=== PATIENT | female | born 1985 | race Caucasian/White ===

== ENCOUNTER → 2019-04-09 15:52 | Outpatient (BNVA) | payer MEDICAID, SELFPAY | PROVIDERS: Family Provider Family Medicine; Visit Provider Nurse Practitioner Family | DX: R05 Cough (principal); J06.9 Acute upper respiratory infection, unspecified | CPT/HCPCS: 87804 ==

== ENCOUNTER → 2019-11-05 14:00 | Outpatient (BNVA) | payer MEDICAID, SELFPAY | PROVIDERS: Family Provider Family Medicine; Visit Provider Obstetrics & Gynecology | DX: Z12.4 Encounter for screening for malignant neoplasm of cervix (principal) | CPT/HCPCS: 88175 ==

== ENCOUNTER → 2020-10-26 15:27 | Outpatient (BNVA) | payer MEDICAID, SELFPAY | PROVIDERS: Family Provider Family Medicine; Visit Provider Nurse Practitioner Family | DX: R05 Cough (principal); Z20.822 Contact with and (suspected) exposure to COVID-19 | CPT/HCPCS: 87635 ==

== ENCOUNTER 2020-11-18 16:04 | Emergency (ER) | payer MEDICAID, SELFPAY ==
[2020-11-18 16:43] VITALS: BP 127/58; PULSE 77; RESP 20; TEMP 36.8; O2SAT 99; BMI 39.9
--- NOTE | 2020-11-18 17:05 | ECG_ITS ---
[facility] Test Date: 2020-11-18 Pat Name: Mary Coburn Department: Room: Gender: Female Asset Availability Leader: : 1985 Requested By: Rip Pruitt Order Number: [id number] Natalia MD: Mohinder Moses M.D. Measurements Intervals [place] Rate: 66 P: 39 ND: 155 QRS: 12 QRSD: 81 T: 43 QT: 370 QTc: 388 Interpretive Statements SINUS RHYTHM NONSPECIFIC T-WAVE ABNORMALITY No previous ECG available for comparison Electronically Signed On 11-19-2020 21:14:38 CDT by Mohinder Moses M.D. [id number]
--- NOTE | 2020-11-18 17:21 | XRR_ITS ---
PROCEDURE INFORMATION: Exam: XR Chest Exam date and time: 11/18/2020 5:21 PM Age: 35 years old Clinical indication: Dyspnea; Patient HX: Covid + day 9 TECHNIQUE: Imaging protocol: XR of the chest. Views: 1 view. COMPARISON: CR Chest 1 [place] [id number] 03/05/2015 2:28 PM FINDINGS: Lungs: Ill-defined opacification in the left lower lobe. Findings are commonly seen in COVID-19 pneumonia. Per report, the patient is COVID-19 positive. Pleural spaces: No pleural effusion. No pneumothorax. Heart/Mediastinum: Stable mild enlargement of the cardiac silhouette. Mediastinal contours are unremarkable. Bones/joints: Unremarkable for age. XR/XR chest 1V portable [id number] IMPRESSION: 1. Ill-defined opacification in the left lower lobe. Findings are commonly seen in COVID-19 pneumonia. Per report, the patient is COVID-19 positive. Recommend followup chest imaging to insure resolution of these findings. 2. Incidental/nonacute findings are listed in the report.
--- NOTE | 2020-11-18 17:36 | CTR_ITS ---
PROCEDURE INFORMATION: Exam: CTA Chest With Contrast Exam date and time: 11/18/2020 5:36 PM Age: 35 years old Clinical indication: Shortness of breath; Patient HX: Covid + on day 9 of treatment worsening SOB and elev d-dimer; Additional info: Rule out pe TECHNIQUE: Imaging protocol: Computed tomographic angiography of the chest with contrast. 3D rendering (Not supervised by radiologist): MIP and/or 3D reconstructed images were created by the technologist. Radiation optimization: All CT scans at this facility use at least one of these dose optimization techniques: automated exposure control; mA and/or kV adjustment per patient size (includes targeted exams where dose is matched to clinical indication); or iterative reconstruction. Contrast material: OMNI 350; Contrast volume: 72 ml; Contrast route: INTRAVENOUS (IV); COMPARISON: CR (CHEST, ) 11/18/2020 5:34 PM RADIATION DOSE METRICS: Total DLP (mGy-cm): 558.86 FINDINGS: Pulmonary arteries: No filling defects in the pulmonary arteries to suggest pulmonary embolism. Aorta: No aortic aneurysm. No aortic dissection. Lungs: Tracheobronchial structures are patent. Multiple areas of ground-glass opacification in the periphery of both lungs. Findings are consistent with COVID-19 pneumonia. No pulmonary parenchymal nodules or masses. Pleural spaces: No pneumothorax. No pleural effusion. Heart: No cardiomegaly. No pericardial effusion. Mediastinal space: The esophagus is unremarkable. Lymph nodes: No lymphadenopathy. Liver: The visualized liver is unremarkable. Gallbladder and bile ducts: Patient has had a previous cholecystectomy. No dilatation of the visualized bile ducts. Pancreas: The visualized pancreas is unremarkable. No pancreatic ductal dilatation. Spleen: The visualized spleen is unremarkable. Adrenal glands: The right and left adrenal glands are unremarkable. Kidneys and ureters: The visualized right and left kidneys are unremarkable. Bones/joints: No acute fracture. No dislocation. Soft tissues: The extrathoracic soft tissues are unremarkable. CT/CT angio chest PE protcl [id number] IMPRESSION: 1. Multiple areas of ground-glass opacification in the periphery of both lungs. Findings are consistent with COVID-19 pneumonia. Per report, the patient is COVID-19 positive. Recommend followup chest imaging to insure resolution of these findings. 2. No evidence for pulmonary embolism. 3. Incidental/nonacute findings are listed in the report. Radiation Dose CTDIVOL = (mGy): DLP = 558.86 (mGy-cm)
[2020-11-18] MEDS: iohexol 350 mg/mL 100 mL Btl IV (18:02)
--- NOTE | 2020-11-18 18:17 | W.ED.GENADLT ---
HPI - General Adult General: Chief complaint: Shortness of Breath/Dyspnea Stated complaint: Covid +, Day 9, Sent by Time Seen by Provider: 11/18/20 17:04 History of Present Illness: HPI narrative: Patient is a 35-year-old female who was diagnosed with Covid 9 days ago presenting to the emergency room with complaints of sharp left-sided chest pain and hemoptysis. Patient's primary care provider was concerned that patient may have blood clot in the setting of Covid and has had an elevated D-dimer. Patient was told to go to the emergency room for evaluation for PE. Patient tells reports pleuritic chest pain in the left side. Denies any exertional chest pain, fever chills, or decreased p.o. intake. Patient has no or abdominal complaints or other complaints at this time. Onset: 4 days ago Duration:4 days Location:home Severity:moderate Review of Systems Narrative: Constitutional: No fever, no chills. HEENT: No vision changes CV: +pleuritic chest pain, no palpitations PULM: +cough, no dyspnea. +hemopytosis GI: No abdominal pain, no N/V/D. : No dysuria MSKEL: No muscle pain SKIN: No new rashes, no lesions. NEURO: No headache, no focal weakness. HEME: No visible bruises PSYCH: Normal mood PFSH ED PFSH: Medical History History of PCOS Obesity Surgical History Hx laparoscopic cholecystectomy (~11/2013) Preformed in [place], [place] Family History Grandfather Heart disease Paternal Hyperlipidemia Paternal Stroke Paternal Mother Uterine cancer Grandmother Hypertension Maternal Stroke Maternal Family/Other Thyroid disease Paternal Aunt Social History Smoking and tobacco status: never smoked Alcohol intake: current Alcohol intake frequency: holidays/special occasions only Female Reproductive History: Date of last menstrual period: 05/19/20 Physical Exam Narrative: EXAM NARRATIVE: Head: Atraumatic Eyes: PERRL, conjunctiva without injection ENT: Mucous membrane moist NECK: Supple, ROM intact LUNGS: Coarse breath sounds b/l CV: RRR ABDOMEN: Soft, nontender in all quadrants EXTREMITY: Normal ROM SKIN: No rash or erythema NEURO: Awake and alert, no focal motor deficits PSYCH: Normal mood and affect Course Vital Signs: Vital signs: Vital Signs Temperature 98.4 F 11/18/20 18:55 Pulse Rate 67 11/18/20 18:55 Respiratory Rate 20 H 11/18/20 18:55 Blood Pressure 121/87 11/18/20 18:55 Pulse Oximetry 98 11/18/20 18:55 MDM - General Adult MDM Narrative: Medical decision making narrative: 35-year-old female who presents the emergency room for concerns of blood clot given elevated D-dimer. On arrival, patient is hemodynamically stable without any signs of hypoxemia in the emergency room. Patient is noted to have coarse breath sounds bilaterally. EKG is unremarkable, basic blood work within normal limit. Chest x-ray and CTA is consistent with Covid pneumonia. There is no findings of blood clots today. Have discussed these results with patient. Patient agrees with follow-up with outpatient primary care provider. This time, given no desaturation in the emergency room, and no other comorbidities, patient does not qualify for BAM or Decadron. I have discussed these results with patient and offered patient a portable pulse ox for and instructed patient on how to use. Patient is to return to the emergency room should she have any symptoms of dyspnea or if her pulse ox is less than 90%. Patient agrees to followup with PCP in next 48-72 hrs for reassessment. Disposition: Discharge. Patient counseled regarding diagnostic impression, treatment plan. Patient given ED strict return precautions to return for continuation, worsening, or development of new symptoms. Instructed to f/u w/ PCP regarding symptoms today. Patient verbalized understanding. Lab Data: Labs: Lab Results 11/18/20 11/18/20 18:19 18:19 WBC 5.0 10^3/uL 10^3/ uL (4.0-10.0) RBC 4.08 10^6/uL L 10 ^6/uL (4.1-5.3) Hgb 12.1 g/dL g/dL (11.5-15.3) Hct 38.3 % % (37.0-47.0) MCV 93.9 fl fl (81-99) MCH 29.7 pg pg (28.0-34.0) MCHC 31.6 g/dL g/dL (30.0-36.0) RDW 12.5 % % (12.1-15.1) Plt Count 254 10^3/cmm 10^3 /cmm (130-400) MPV 9.4 fL fL (7.4-10.4) Neut % (Auto) 48.7 % % Lymph % (Auto) 43.1 % % [place] % (Auto) 7.6 % % Eos % (Auto) 0.2 % % Baso % (Auto) 0.2 % % Neut # (Auto) 2.42 10^3/uL 10^3 /uL (1.8-7.7) Lymph # (Auto) 2.1 10^3/uL 10^3/ uL (0.8-4.8) [place] # (Auto) 0.4 10^3/uL 10^3/ uL (0.2-0.9) Eos # (Auto) 0.0 10^3/uL 10^3/ uL (0.0-0.8) Baso # (Auto) 0.0 10^3/uL 10^3/ uL (0.0-0.1) Nucleated RBC % (a uto) 0 % % Nucleated RBCs # 0.0 /100WBC /100W BC Sodium 137 mmol/L mmol/L (136-145) Potassium 4.1 mmol/L mmol/L (3.5-5.1) Chloride 99 mmol/L mmol/L (98-107) Carbon Dioxide 29 mmol/L mmol/L (22-29) Anion Gap 13.1 (5-19) BUN 6 mg/dL mg/dL (6-20) Creatinine 0.5 mg/dL mg/dL (0.5-0.9) GFR Calculation 141.2 mL/min H mL /min (90-130) Glucose 82 mg/dL mg/dL (65-115) Calculated Osmolal ity 281 mOsm/kg L mOs m/kg (285-295) Calcium 8.8 mg/dL mg/dL (8.5-10.5) Imaging Data^: Other Imaging: Radiologist's impression: [employer] [id number] ReportSigned Patient: Sandra Coburn #: [id number]: 1985Acct#:[id number]/Sex: 35 / FADM Date: 11/18/20Loc: ERRoom/Bed:Attending Dr: Ordering Provider/Ordering MD: Rip Pruitt MD Date of Service: 11/18/20 Procedure(s): XR chest 1V portable [id number] Accession Number(s): [id number] Report Number: [id number] PROCEDURE INFORMATION: Exam: XR Chest Exam date and time: 11/18/2020 5:21 PM Age: 35 years old Clinical indication: Dyspnea; Patient HX: Covid + day 9 TECHNIQUE: Imaging protocol: XR of the chest. Views: 1 view. COMPARISON: CR Chest 1 [place] [id number] 03/05/2015 2:28 PM FINDINGS: Lungs: Ill-defined opacification in the left lower lobe. Findings are commonly seen in COVID-19 pneumonia. Per report, the patient is COVID-19 positive. Pleural spaces: No pleural effusion. No pneumothorax. Heart/Mediastinum: Stable mild enlargement of the cardiac silhouette. Mediastinal contours are unremarkable. Bones/joints: Unremarkable for age. XR/XR chest 1V portable [id number] IMPRESSION: 1. Ill-defined opacification in the left lower lobe. Findings are commonly seen in COVID-19 pneumonia. Per report, the patient is COVID-19 positive. Recommend followup chest imaging to insure resolution of these findings. 2. Incidental/nonacute findings are listed in the report. Dictated By:Amy Roberts MDSigned By:Amy Roberts MDSigned Date/Time:11/18/[address] [id number] Scan ReportSigned Patient: Sandra Coburn #: [id number]: 1985Acct#:[id number]/Sex: 35 / FADM Date: 11/18/20Loc: ERRoom/Bed:Attending Dr: Ordering Provider/Ordering MD: Rip Pruitt MD Date of Service: 11/18/20 Procedure(s): CT angio chest PE protcl [id number] Accession Number(s): [id number] Report Number: [id number] PROCEDURE INFORMATION: Exam: CTA Chest With Contrast Exam date and time: 11/18/2020 5:36 PM Age: 35 years old Clinical indication: Shortness of breath; Patient HX: Covid + on day 9 of treatment worsening SOB and elev d-dimer; Additional info: Rule out pe TECHNIQUE: Imaging protocol: Computed tomographic angiography of the chest with contrast. 3D rendering (Not supervised by radiologist): MIP and/or 3D reconstructed images were created by the technologist. Radiation optimization: All CT scans at this facility use at least one of these dose optimization techniques: automated exposure control; mA and/or kV adjustment per patient size (includes targeted exams where dose is matched to clinical indication); or iterative reconstruction. Contrast material: OMNI 350; Contrast volume: 72 ml; Contrast route: INTRAVENOUS (IV); COMPARISON: CR (CHEST, ) 11/18/2020 5:34 PM RADIATION DOSE METRICS: Total DLP (mGy-cm): 558.86 FINDINGS: Pulmonary arteries: No filling defects in the pulmonary arteries to suggest pulmonary embolism. Aorta: No aortic aneurysm. No aortic dissection. Lungs: Tracheobronchial structures are patent. Multiple areas of ground-glass opacification in the periphery of both lungs. Findings are consistent with COVID-19 pneumonia. No pulmonary parenchymal nodules or masses. Pleural spaces: No pneumothorax. No pleural effusion. Heart: No cardiomegaly. No pericardial effusion. Mediastinal space: The esophagus is unremarkable. Lymph nodes: No lymphadenopathy. Liver: The visualized liver is unremarkable. Gallbladder and bile ducts: Patient has had a previous cholecystectomy. No dilatation of the visualized bile ducts. Pancreas: The visualized pancreas is unremarkable. No pancreatic ductal dilatation. Spleen: The visualized spleen is unremarkable. Adrenal glands: The right and left adrenal glands are unremarkable. Kidneys and ureters: The visualized right and left kidneys are unremarkable. Bones/joints: No acute fracture. No dislocation. Soft tissues: The extrathoracic soft tissues are unremarkable. CT/CT angio chest PE protcl [id number] IMPRESSION: 1. Multiple areas of ground-glass opacification in the periphery of both lungs. Findings are consistent with COVID-19 pneumonia. Per report, the patient is COVID-19 positive. Recommend followup chest imaging to insure resolution of these findings. 2. No evidence for pulmonary embolism. 3. Incidental/nonacute findings are listed in the report. Radiation Dose CTDIVOL = (mGy): DLP = 558.86 (mGy-cm) Dictated By:Amy Roberts MDSigned By:Amy Roberts MDSigned Date/Time:11/18/201818DD/ 17 Discharge Plan Discharge Patient Disposition: Home Clinical Impression: Cough, Chest pain, Pneumonia due to 2019-nCoV Condition: Stable Prescriptions: New acetaminophen 500 mg tablet 500 mg PO Q6H PRN (Reason: chest pain) 5 Days Qty: 20 RF: 0 melatonin 10 mg tablet 10 mg PO DAILY PRN (Reason: sleep) 10 Days Qty: 10 RF: 0 No Action norethindrone (contraceptive) [Jencycla] 0.35 mg tablet 0.35 mg PO DAILY Qty: 28 RF: 6 Discharge Orders: Discharge ED (Routine); Ordered 11/18/20 Ordered By: Rip Pruitt Referrals: Anthony Baez [Primary Care Provider] - Discharge Diet: Advance as tolerated Discharge Activity: Resume usual activity Patient Instructions: Chest Pain (ED), Severe Acute Respiratory Syndrome (SARS) (ED) Activity Restrictions/Additional Instructions: Come back to the emergency room if your symptoms worsen, have any shortness of breath, fever/chills, dehydration, inability tolerate p.o., any difficulty breathing, or any new or concerning complaints. Coding Level of Care Code ED Digital Project Manager for Deon Blank
[2020-11-18 18:25] LABS: Basophils % 0.2 %; Eosinophils % 0.2 %; Hematocrit 38.3 % (37.0-47.0); Hemoglobin 12.1 g/dL (11.5-15.3); Lymphocytes # 2.1 10^3/uL (0.8-4.8); Lymphocytes % 43.1 %; Mean Corpuscular HGB Conc 31.6 g/dL (30.0-36.0); Mean Corpuscular Hemoglobin 29.7 pg (28.0-34.0); Mean Corpuscular Volume 93.9 fl (81-99); Mean Platelet Volume 9.4 fL (7.4-10.4); Monocytes # 0.4 10^3/uL (0.2-0.9); Monocytes % 7.6 %; Neutrophils # 2.42 10^3/uL (1.8-7.7); Neutrophils % 48.7 %; Nucleated Red Blood Cells % 0 %; Platelet Count 254 10^3/cmm (130-400); Red Blood Count 4.08 10^6/uL (4.1-5.3); Red Cell Distribution Width 12.5 % (12.1-15.1)
[2020-11-18 18:45] LABS: Anion Gap 13.1 (5-19); Blood Urea Nitrogen 6 mg/dL (6-20); Calcium 8.8 mg/dL (8.5-10.5); Carbon Dioxide 29 mmol/L (22-29); Chloride 99 mmol/L (98-107); Glomerular Filtration Rate 141.2 mL/min (90-130); Glucose 82 mg/dL (65-115); Osmolality Calculated 281 mOsm/kg (285-295); Potassium 4.1 mmol/L (3.5-5.1); Sodium 137 mmol/L (136-145)
[2020-11-18 18:55] VITALS: BP 121/87; PULSE 67; RESP 20; TEMP 36.9; O2SAT 98
[2020-11-18 19:06] LABS: Slide Review Slide Review Perform
== END 2020-11-18 18:58 | disposition home or self-care (01) ==
PROVIDERS: Emergency Provider Emergency Medicine; PCP Nurse Practitioner Family
DX: U07.1 COVID-19 (principal); J12.82 Pneumonia due to coronavirus disease 2019; R07.9 Chest pain, unspecified
CPT/HCPCS: 71045; 71275; 80048; 85025; 93005; 99283; Q9967

== ENCOUNTER 2023-03-04 14:11 | Outpatient (CLI) | payer MEDICAID, SELFPAY ==
--- NOTE | 2023-03-04 14:15 | MM_ITS ---
WS: [id number] BILATERAL 3D TOMOSYNTHESIS DIGITAL DIAGNOSTIC MAMMOGRAPHY WITH CAD CLINICAL INFORMATION: LT BR PAIN HISTORY: LEFT breast pain COMPARISON: Baseline TECHNIQUE: Bilateral CC, MLO, and ML views. FINDINGS: Scattered fibroglandular densities bilaterally. Few incidental punctate calcifications. No definite p arenchymal abnormalities deep to the pain markers LEFT breast. Ultrasound is pending. Remarkable RIGHT breast. ULTRASOUND BREAST LEFT TECHNIQUE: Ultrasound left breast focused area of concern. CLINICAL INFORMATION: LT BR PAIN FINDINGS: Ultrasound LEFT breast areas of concern at the 3 o'clock position 6 to 12 cm from the nipple. Normal underlying parenchymal tissue. No cystic or solid lesions. No suspicious lesions to target for biopsy . IMPRESSION: MM/[place] [id number] BI-RADS: 2-Benign FOLLOW UP: Age 41 Recommend annual screen mammography age 41
== END 2023-03-04 14:12 | disposition home or self-care (01) ==
LOC: RAD 14:11
PROVIDERS: PCP Nurse Practitioner Family; Visit Provider Nurse Practitioner Family
DX: N64.4 Mastodynia (principal)
CPT/HCPCS: 76642; 77062; G0279